=== PATIENT | female | born 1950 ===

== ENCOUNTER → 2018-03-28 | Emergency (ER) | payer OTHER ==
[~2018-03-28] VITALS: Ht 149.9 cm; Wt 55.3 kg
== END | disposition home or self-care (01) ==
LOC: ER 10:23
DX: S91.201A Unspecified open wound of right great toe with damage to nail, initial encounter (principal); W22.8XXA Striking against or struck by other objects, initial encounter; Y93.89 Activity, other specified; Y92.89 Other specified places as the place of occurrence of the external cause; Y99.8 Other external cause status

== ENCOUNTER 2018-12-16 08:23 | Outpatient (CLI) | payer OTHER | END 2018-12-16 08:26 | disposition home or self-care (01) | LOC: SONOGRAMA 08:23 | DX: E04.8 Other specified nontoxic goiter (principal); E04.2 Nontoxic multinodular goiter ==